=== PATIENT | female | born 1970 | race Caucasian/White ===

== ENCOUNTER → 2017-11-20 | Outpatient (CLI) | payer BC ==
[~2017-11-20] MED LIST: ALBU90OI INH; ALBU90OI61 INH; Augmentin 875-1 EACH PO; Budeprion Xl300 MG PO; CHOL10002 PO; CYAN500 PO; CYCL10 PO; Desyrel50 MG PO; ESTR2 PO; FLUSAL2505 INH; FLUSAL5005 INH; L-Lysine500 M1 PO; LAVAP17G PO; MONT10T PO; Prednisone20 MG PO; Prilosec Otc20 MG PO; TOCO400; TOCO400 PO; TRAM50 PO; VITAMIN B12-FO1 EACH; Ventolin Soln3 ML INH; Vitamin D400 UNI1; Zofran Odt4 MG PO
== END ==
LOC: LAB SHORT 14:02
DX: Z20.9 Contact with and (suspected) exposure to unspecified communicable disease (principal)
CPT/HCPCS: 87389

== ENCOUNTER → 2020-03-31 | Outpatient (CLI) | payer BC ==
[2020-03-31 19:52] LABS: BASOPHILS ABSOLUTE AUTO 0.08 K/mm3 (0.00-0.23); BASOPHILS PERCENT AUTO 1 % (0-2); EOSINOPHILS ABSOLUTE AUTO 0.09 K/mm3 (0.00-0.68); EOSINOPHILS PERCENT AUTO 1 % (0-6); Hemoglobin 13.3 g/dL (11.5-16.0); IMMATURE GRAN ABSOLUTE AUTO 0.02 K/mm3 (0.00-0.10); IMMATURE GRAN PERCENT AUTO 0 % (0-1); LYMPHOCYTES ABSOLUTE AUTO 2.47 K/mm3 (0.84-5.20); LYMPHOCYTES PERCENT AUTO 32 % (21-46); MONOCYTES ABSOLUTE AUTO 0.65 K/mm3 (0.16-1.47); MONOCYTES PERCENT AUTO 9 % (4-13); Mean Corpuscular HGB Conc 33.3 g/dL (31.5-36.5); Mean Corpuscular Volume 87 fL (80-100); Mean Platelet Volume 11.2 fL (9.1-12.4); NEUTROPHILS ABSOLUTE AUTO 4.31 K/mm3 (1.96-9.15); NEUTROPHILS PERCENT AUTO 57 % (41-73); Platelet Count 235 K/mm3 (150-400); RDW Coefficient Variation 13.2 % (11.7-14.2); RDW Standard Deviation 41.2 fL (35.1-46.3); Red Blood Cell Count 4.59 M/mm3 (3.80-5.20); White Blood Cell Count 7.62 K/mm3 (4.00-11.30)
[2020-03-31 20:34] LABS: Amylase, Blood 61 U/L (25-115)
[2020-03-31 20:35] LABS: Alanine Aminotransfer (ALT/SGP 39 U/L (12-78); Albumin, Blood 3.6 g/dL (3.4-5.0); Albumin/Globulin Ratio 1.1 (0.8-1.8); Alk Phos 109 U/L (50-136); Anion Gap 6 mmol/L (6-16); Aspartate Aminotrans (AST/SGOT 25 U/L (12-37); Bilirubin, Direct <0.1 mg/dL (0.0-0.3); Bilirubin, Indirect Unable to Calculate mg/dL (0.1-0.7); Bilirubin, Total 0.3 mg/dL (0.1-1.0); Blood Urea Nitrogen 9 mg/dL (8-24); Bun/Creatinine Ratio 9.1 (12.0-20.0); CO2, Blood 26 mmol/L (21-32); Calcium, Blood 8.5 mg/dL (8.5-10.1); Chloride, Blood 108 mmol/L (98-108); Creatinine, Blood 0.99 mg/dL (0.40-1.00); Globulin, Blood 3.3 g/dL (2.2-4.0); Glomerular Filtration Rate >60 (60-); Glucose, Blood 101 mg/dL (70-99); Potassium, Blood 3.8 mmol/L (3.5-5.5); Sodium, Blood 140 mmol/L (136-145); Total Protein, Blood 6.9 g/dL (6.4-8.2)
== END ==
LOC: LAB SHORT 17:48 → LAB 17:48
PROVIDERS: Nurse Practitioner Family
DX: R10.0 Acute abdomen (principal)
CPT/HCPCS: 36415; 80053; 82150; 82248; 83690; 85025; 87086

== ENCOUNTER 2020-07-30 06:46 | Day surgery (SDC) | payer BC ==
[~2020-07-30] VITALS: Ht 154.9 cm; Wt 73.2 kg
== END 2020-07-30 09:27 | disposition home or self-care (01) ==
LOC: ORSCSDS 06:46
PROVIDERS: Student in an Organized Health Care Education/Training Program
PROC: 0DB58ZX Excision of Esophagus, Via Natural or Artificial Opening Endoscopic, Diagnostic (ICD-10-PCS; principal; 2020-07-30 08:00)
PROC: 0DBK8ZX Excision of Ascending Colon, Via Natural or Artificial Opening Endoscopic, Diagnostic (ICD-10-PCS; principal; 2020-07-30 08:00)
PROC: 0DBN8ZX Excision of Sigmoid Colon, Via Natural or Artificial Opening Endoscopic, Diagnostic (ICD-10-PCS; principal; 2020-07-30 08:00)
PROC: 0DB78ZX Excision of Stomach, Pylorus, Via Natural or Artificial Opening Endoscopic, Diagnostic (ICD-10-PCS; principal; 2020-07-30 08:00)
PROC: 0DB98ZX Excision of Duodenum, Via Natural or Artificial Opening Endoscopic, Diagnostic (ICD-10-PCS; principal; 2020-07-30 08:00)
DX: R10.9 Unspecified abdominal pain (principal); R13.10 Dysphagia, unspecified; Z80.0 Family history of malignant neoplasm of digestive organs; K58.1 Irritable bowel syndrome with constipation; D12.2 Benign neoplasm of ascending colon; K63.5 Polyp of colon; K31.7 Polyp of stomach and duodenum; J45.909 Unspecified asthma, uncomplicated; E03.9 Hypothyroidism, unspecified; Z87.891 Personal history of nicotine dependence; Z79.899 Other long term (current) drug therapy
CPT/HCPCS: 88305; 88342; J0461; J2405; J2704; J7120

== ENCOUNTER → 2022-02-23 | Outpatient (CLI) | payer BC ==
[2022-03-01 05:10] LABS: HSV-1 DNA Negative (Negative); HSV-2 DNA Positive (Negative)
== END | disposition home or self-care (01) ==
LOC: LAB 11:00 → LAB SHORT 11:00
PROVIDERS: Dermatology
DX: L08.0 Pyoderma (principal)
CPT/HCPCS: 87529

== ENCOUNTER 2024-11-11 11:00 | Day surgery (SDC) | payer BC ==
[~2024-11-11] VITALS: Ht 154.9 cm; Wt 59.9 kg
[2024-11-11] VITALS (13 sets, daily range): BP systolic 88–130; BP diastolic 54–80
[~2024-11-11 11:00] MED LIST changes: +BUPR150ER PO; +COLLAGEN 15001 EACH PO; +Lactated Ringer's 1,000 ML IV SCH; +MAGNESIUM OXID500 MG PO; +MULTI-VITAMIN1 EAC2 PO
--- NOTE | 2024-11-11 11:42 | NUR ---
History, Chart, Medications and Allergies reviewed before start of procedure. Ambulatory in Day Surgery WITH STEADY GAIT. PT REPORTS REMOVING CONTACTS AT HOME AND LEAVING THEM THERE. BELONGINGS PLACED UNDER GURN. Pre-Op teaching done. Pt verbalizes understanding. Patient States Post-Procedure ride home has been arranged WITH DAUGHTER. DYLAN REFUSAL CONSENT SIGNED FOR RING ON RIGHT HAND.
[2024-11-11] MEDS ORDERED: Lidocaine HCl 2% 20 ML MDV ONE (11:45)
[2024-11-11] MEDS ORDERED: Ketorolac Tromethamine 30mg Vial ONE (11:45)
[2024-11-11] MEDS ORDERED: Dexamethasone Sod Phos 10 MG/ML 1ML VIAL ONE (11:45)
[2024-11-11] MEDS ORDERED: Rocuronium Bromide 10 MG/ML 5ML Injection IV ONE (11:45)
[2024-11-11] MEDS ORDERED: Ondansetron HCl 2 MG / ML 2ML Vial ONE (11:45)
[2024-11-11] MEDS ORDERED: propofoL 20 ML IV ONE (11:46)
[2024-11-11] MEDS ORDERED: FentaNYL Citrate 50 MCG/ML 5 ML Injection ONE (11:46)
[2024-11-11] MEDS ORDERED: Estradiol Vag Cream 0.1 MG/G 42.5 GM Tube VAG ONE (13:00)
[2024-11-11] MEDS ORDERED: Bupivacaine 0.5% HCl 5 MG/ML 30MLVIAL ONE (13:02)
[2024-11-11] MEDS ORDERED: ePHEDrine Sulfate 50 MG/ML 1ML Injection ONE (13:19)
[2024-11-11] MEDS ORDERED: Glycopyrrolate 0.2 MG/ML 5ML VIAL ONE (13:24)
[2024-11-11] MEDS ORDERED: Lidocaine 1%-Epineph 1:100000 20 ML MDV XX ONE ×2 (13:26)
--- NOTE | 2024-11-11 13:53 | NUR ---
11/11/24 1353 Martine,Jagruti VAGINAL PACKING WITH ESTRADIOL VAGINAL CREAM PLACED IN VAGINA.
[2024-11-11] MEDS ORDERED: FLU VACC TS2024-25(6MOS UP)/PF 45 MCG/0.5 ML SYRINGE IM SCH (14:10)
[2024-11-11] MEDS ORDERED: Acetaminophen 325 MG TABLET PO PRN (14:10)
[2024-11-11] MEDS ORDERED: FentaNYL Citrate 50 MCG/ML 2 ML Injection ONE (14:10)
[2024-11-11] MEDS ORDERED: DiphenhydrAMINE HCL 25 MG Cap PO PRN (14:10)
[2024-11-11] MEDS ORDERED: Metoclopramide HCl 5MG / ML 2ML Vial ONE (14:13)
[2024-11-11] MEDS ORDERED: Lactated Ringer's 1,000 ML IV SCH (14:15)
[2024-11-11] MEDS ORDERED: Ondansetron HCl 2 MG / ML 2ML Vial IV PRN (14:15)
[2024-11-11] MEDS ORDERED: OxyCODONE HCL 5 MG TAB PO PRN (14:15)
--- NOTE | 2024-11-11 14:45 | NUR ---
ARRIVAL TO UNIT AFTER RECEIVING REPORT FROM [employer] EXTRACTOR, PATIENT TRANSFERRED TO UNIT VIA GURNEY AT APPROX 1435. PATIENT TRANSFERRED TO BED VIA SLIDER SHEET. LETHARGIC, EASILY AROUSABLE WITH VERBAL STIMULI. S/P POSTERIOR REPAIR. ELLY PAD IN PLACE - NO BLEEDING NOTED. IGNACIO CATHETER IN PLACE, DRAINING YELLOW URINE TO GRAVITY. VSS. ON ROOM AIR, SATs >90%. LUNG SOUNDS CLEAR. WATER AND SMALL SNACKS WITHIN REACH. LR INFUSING TO GRAVITY. CALL LIGHT IN REACH.
[2024-11-11 15:42] LABS: BASOPHILS ABSOLUTE AUTO 0.05 K/mm3 (0.00-0.23); BASOPHILS PERCENT AUTO 1 % (0-2); EOSINOPHILS ABSOLUTE AUTO 0.04 K/mm3 (0.00-0.68); EOSINOPHILS PERCENT AUTO 1 % (0-6); Hematocrit 40.1 % (33.0-51.0); Hemoglobin 13.6 g/dL (11.5-16.0); IMMATURE GRAN ABSOLUTE AUTO 0.03 K/mm3 (0.00-0.10); IMMATURE GRAN PERCENT AUTO 0 % (0-1); LYMPHOCYTES PERCENT AUTO 18 % (21-46); MONOCYTES ABSOLUTE AUTO 0.31 K/mm3 (0.16-1.47); MONOCYTES PERCENT AUTO 4 % (4-13); Mean Corpuscular HGB 30.9 pg (26.0-34.0); Mean Corpuscular HGB Conc 33.9 g/dL (31.5-36.5); Mean Corpuscular Volume 91 fL (80-100); Mean Platelet Volume 10.4 fL (9.1-12.4); NEUTROPHILS ABSOLUTE AUTO 5.78 K/mm3 (1.96-9.15); NEUTROPHILS PERCENT AUTO 76 % (41-73); Platelet Count 190 K/mm3 (150-400); White Blood Cell Count 7.61 K/mm3 (4.00-11.30)
[2024-11-11] MEDS ORDERED: Ketorolac Tromethamine 30mg Vial IV SCH (18:00)
--- NOTE | 2024-11-11 18:05 | NUR ---
SHIFT SUMMARY NO ACUTE CHANGES SINCE ARRIVAL TO UNIT. VS REMAIN STABLE. PATIENT MUCH MORE ALERT - COMMUNICATING NEEDS EFFECTIVELY. S/P POSTERIOR REPAIR - NO BLEEDING NOTED ON ELLY PAD. MANAGING PAIN PER EMAR. PATIENT DECLINED FIRST POST OP AMBULATION THIS EVENING - REQUESTING TO WAIT. IGNACIO CATHETER REMAINS IN PLACE AT PATIENT REQUEST - DRAINING YELLOW URINE TO GRAVITY. TOLERATING PO INTAKE. LR INFUSING PER EMAR. CALL LIGHT IN REACH. WILL CONTINUE TO MONITOR AND REPORT TO ONCOMING RN.
[2024-11-12 02:28] VITALS: BP 95/57
[2024-11-12 03:57] VITALS: BP 87/57
[2024-11-12 03:58] VITALS: BP 87/57
--- NOTE | 2024-11-12 05:49 | NUR ---
SHIFT SUMMARY POD 1 POSTERIOR REPAIR. NO ACUTE CHANGES OVERNIGHT. VSS, SOFT BPs, FLUIDS INCOURAGED. TOLERATING ORALS. IND AMB IN ROOM, SBA R/T CORD MANAGEMENT. VOIDING, VAGINAL PACKING REMOVED. 1 ELLY PAD c SCANT DRAINAGE USED T/O NIGHT. PT REPORTS PAIN TOLERABLE, MEDICATED PER EMAR. ANTICIPATED DISCHARGE LATER TODAY. CALL LIGHT IN REACH, BED IN LOWEST POSITION, WILL REPORT TO DAY RN.
[2024-11-12 07:10] VITALS: BP 97/58
[2024-11-12] MEDS ORDERED: Percocet 5-3251 EACH PO (09:21)
[2024-11-12 09:22] VITALS: BP 100/55
[2024-11-12] MEDS ORDERED: IBU800 MG PO (09:22)
--- NOTE | 2024-11-12 10:27 | NUR ---
DISCHARGE NOTE THIS RN ASSUMED CARE AT APPROX 0715. POD 1 POSTERIOR REPAIR. BP SOFT OVERNIGHT, SBP 80s-90s. SBP 90s-100s THIS MORNING. MAP >65. PATIENT ASYMPTOMATIC, AMBULATING IN HALLWAY WITH NO REPORT OF DIZZINESS. VAGINAL PACKING REMOVED BY NIGHT RN PRIOR TO ASSUMPTION OF CARE - SCANT VAGINAL BLEEDING ON ELLY PAD. PAIN MANAGED PER EMAR WITH PRESCRIBED MEDICATION. VOIDING SINCE IGNACIO REMOVAL PRIOR TO ASSUMPTION OF CARE. TOLERATING PO INTAKE. DC HOME ORDER IN PLACE - DC CRITERIA MET PER MD ORDER. IV REMOVED. DC EDUCATION PROVIDED - PATIENT STATES UNDERSTANDING. PATIENT TRANSFERRED TO PERSONAL VEHICLE VIA WHEELCHAIR AT APPROX 1015. PERSONAL BELONGINGS WITH PATIENT.
[2024-11-12] MEDS ORDERED: Ibuprofen 400 MG Tab PO PRN (12:00)
== END 2024-11-12 10:18 | disposition home or self-care (01) ==
LOC: ORSCMMR 11:00 → ORD 14:30 → SURS 14:47 → ORSCMMR 11-12 10:18
PROVIDERS: Obstetrics & Gynecology
PROC: 0JQC0ZZ Repair Pelvic Region Subcutaneous Tissue and Fascia, Open Approach (ICD-10-PCS; principal; 2024-11-11 12:30)
DX: N81.6 Rectocele (principal); J45.909 Unspecified asthma, uncomplicated; K21.9 Gastro-esophageal reflux disease without esophagitis; F32.A Depression, unspecified; Z79.899 Other long term (current) drug therapy; Z85.43 Personal history of malignant neoplasm of ovary
CPT/HCPCS: 36415; 85025; A9270; J1100; J1885; J2405; J2704; J2765; J3010; J7120